=== PATIENT | female | born 1990 | race Asian ===

== ENCOUNTER 2017-01-27 07:58 | Inpatient (IN) | payer OTHER ==
[~2017-01-27] VITALS: Ht 157.5 cm; Wt 62.7 kg
[2017-01-27] MEDS ORDERED: LACTATED RINGER'S 1,000 ML IV SCH ×3 (09:30→15:13)
[2017-01-27 09:41] VITALS: BP 133/79; PULSE 86
[2017-01-27 09:42] VITALS: BMI 25.3
[2017-01-27] MEDS ORDERED: PRENAT PO (09:46)
--- NOTE | 2017-01-27 09:48 | RADRPT ---
PROCEDURE: OB ultrasound for biophysical profile CLINICAL INDICATION: Gestational diabetes TECHNIQUE: Multiple sonographic images of the pelvis were obtained. Transabdominal views of the g ravid uterus are available for review. The images were reviewed on a PACS workstation. COMPARISON: None FINDINGS: breathing movement = 2/2 tone = 2/2 motion = 2/2 NAINA = 2/2 NAINA = 11.8 cm Single live intrauterine with cardiac activity of 126 bpm. position is cephal ic. The placenta is anterior. IMPRESSION: 1. Single live intrauterine gestation. 2. Biophysical profile = 8/8. 3. NAINA = 11.8 cm. RPTAT: HH .Esha Amador MD, MD Date Time Electronically viewed and signed by .Esha Amador MD, on 01/27/2017 09:48 .G/
--- NOTE | 2017-01-27 09:59 | RADRPT ---
PROCEDURE: US OB. CLINICAL INDICATION: Gestational diabetes TECHNIQUE: Multiple sonographic images of the pelvis were obtained. Transabdominal imaging only w as performed. The images were reviewed on a PACS workstation. COMPARISON: No prior studies are available for comparison. FINDINGS: There is a single live intrauterine gestation. Cardiac activity is present with 146 beats per minut e. position is cephalic. Measurements were made in order to determine age. The results are as follows: BPD = 8.74 cm HC = 31.50 cm AC = 32.20 cm FL = 6.92 cm. Estimated gestational age of approximately 35 weeks 4 days. The estimated date of delivery is 02/27/2017. The EFW = 2767 g, 5.7 %ile. The placenta is anterior. There is no evidence for an abruption or placenta previa. There are no adnexal masses. IMPRESSION: 1. Single live intrauterine gestation of approximately 35 weeks 4 days, by ultrasound criteria. 2. The estimated date of delivery is 02/27/2017. 3. The estimated weight is 2767 g, 5.7 %ile. RPTAT: HH .Esha Amador MD, Date Time Electronically viewed and signed by .Esha Amador MD, on 01/27/2017 09:58 .G/
[2017-01-27 15:27] LABS: ABNORMAL IP MESSAGE 1; BASOPHILS % 0.2 % (0.0-2.0); EOSINOPHILS # 0.1 10^3/ul (0.0-0.5); EOSINOPHILS % 0.6 % (0.0-7.0); LYMPHOCYTES # 1.6 10^3/ul (0.8-2.9); LYMPHOCYTES % 15.1 % (15.0-51.0); MEAN CORPUSCULAR HEMOGLOBIN 28.8 pg (29.0-33.0); MEAN CORPUSCULAR HGB CONC 32.3 g/dl (32.0-37.0); MEAN CORPUSCULAR VOLUME 89.3 fl (82.0-101.0); MONOCYTE # 0.9 10^3/ul (0.3-0.9); MONOCYTES % 8.6 % (0.0-11.0); NEUTROPHILS % 73.2 % (39.0-77.0); PLATELET COUNT 131 10^3/UL (140-415); RED BLOOD COUNT 3.47 10^6/ul (4.20-5.40); RED CELL DISTRIBUTION WIDTH 15.3 % (11.5-14.5); WHITE BLOOD COUNT 10.3 10^3/ul (4.8-10.8)
[2017-01-27] MEDS ORDERED: BUTORPHANOL 2 MG INJ IV PRN (15:30)
[2017-01-27] MEDS ORDERED: METHYLERGONOVINE 0.2 MG INJ IM PRN (15:30)
[2017-01-27] MEDS ORDERED: MISOPROSTOL 200 MCG TAB PR PRN (15:30)
[2017-01-27] MEDS ORDERED: OXYTOCIN 30 UNITS/LR 500 ML IV PRN (15:30)
[2017-01-27] MEDS ORDERED: LIDOCAINE 1% (MPF) 30 ML INJ INJ PRN (15:30)
[2017-01-27] MEDS ORDERED: CARBOPROST 250 MCG INJ IM PRN (15:30)
[2017-01-27] MEDS ORDERED: IBUPROFEN 600 MG TAB PO PRN (15:30)
[2017-01-27] MEDS ORDERED: OXYTOCIN 30 UNITS/LR 500 ML IV SCH ×3 (15:30)
[2017-01-27 15:34] LABS: POSITIVE DIFF @See below
[2017-01-27 15:44] LABS: INR 0.85; PROTIME 11.6 Sec (12.2-14.2); PT RATIO 0.9
[2017-01-27 15:45] LABS: PARTIAL THROMBOPLASTIN TIME 27.6 Sec (25.0-35.0)
[2017-01-27 16:06] VITALS: Ht 157.5 cm; Wt 62.7 kg
[2017-01-27 16:13] VITALS: BP 123/74; PULSE 76; RESP 18
[2017-01-27] MEDS ORDERED: LACTATED RINGER'S 1,000 ML IV PRN (19:00)
[2017-01-27] MEDS ORDERED: FENTAnyl 2MCG/ML-ROPIV 0.2% 100 ML ONE (22:19)
[2017-01-27] MEDS ORDERED: FENTAnyl 2MCG/ML-ROPIV 0.2% 100 ML BAG EPI SCH (22:30)
[2017-01-27] MEDS ORDERED: NALOXONE (0.4 MG/ML) INJ IV PRN (22:30)
[2017-01-27] MEDS ORDERED: EPHEDrine SULFATE 50 MG/5 ML SYG IV PRN (22:30)
[2017-01-27] MEDS ORDERED: ONDANSETRON 4 MG INJ IV PRN (22:30)
[2017-01-27] MEDS ORDERED: DIPHENHYDRAMINE 50 MG INJ IV PRN (22:30)
[2017-01-28] MEDS: DEXTROSE 5%-LR 1,000 ML IV SCH ×2 (01:32→01:33)
--- NOTE | 2017-01-28 10:00 | HP ---
Date/Time of Note Date/Time of Note DATE: 01/28/17 TIME: 09:59 OB - History Hx of Present Free Text/Dictation 39+ : 1 Para: 0 Care: Good Care Ultrasounds: Normal mid trimester US Obstetrical Complications: None Medical Complications: None Past Family/Social History * Past Medical, Surgical, Family and Obstetric Histories reviewed from chart. OB Admission Exam Vital Signs Vital Signs Vital Signs Date Time Temp Pulse Resp B/P Pulse Ox O2 Delivery O2 Flow Rate FiO2 01/27/17 16:13 98.6 76 18 123/74 99 Room Air Last 72 hourBlood Glucose Bedside Glucose - 72 Hours Test 01/27/17 09:23 01/27/17 18:54 01/28/17 01:24 01/28/17 05:36 Bedside Glucose 76mg/dL (70-220) 106mg/dL (70-220) 68mg/dL (70-220) L 89mg/dL (70-220) Last 72 hours Lab Results CBC & BMP 01/27/17 08:35 OB Assessment/Plan Reason for admission: observation Plan: Expectant Management NANCY GOLD M.D. Jan 28, 2017 10:00
--- NOTE | 2017-01-28 10:01 | LDN ---
Date/Time of Note Date/Time of Note DATE: 01/28/17 TIME: 10:00 Delivery Summary Weeks of Gestation 39+ Placenta Delivered: Spontaneously Meconium: none Perineal laceration: 2 Anesthesia type: Epidural Estimated blood loss: 200 Sponge & Needle done & correct: Yes All needle counts correct: Yes Any foreign bodies felt in the: No Problems: Delivery Information Sex Infant Sex: female Apgars 1 Minute: 9 5 Minute: 9 Suctioning Nose & mouth suctioned at sondra: Yes Delee suction performed: Yes Umbilical Cord Umbilical cord with: 3 Vessels Cord presentations: nuchal cord (x1) Cord Blood was obtained: Yes Mother & Baby Disposition Disposition Mom & Baby to Maternity; Good: Yes Baby to NICU: No NANCY GOLD M.D. Jan 28, 2017 10:01
[2017-01-28 11:00] VITALS: BP 138/77; PULSE 76; RESP 19
[2017-01-28 11:30] VITALS: BP 125/70; PULSE 73; RESP 19
[2017-01-28] MEDS: LACTATED RINGER'S 1,000 ML IV* SCH ×2 (11:32→14:30)
[2017-01-28] MEDS ORDERED: OXYTOCIN 30 UNITS/LR 500 ML IV PRN (12:00)
[2017-01-28] MEDS ORDERED: CARBOPROST 250 MCG INJ IM PRN (12:00)
[2017-01-28] MEDS ORDERED: MISOPROSTOL 200 MCG TAB PR PRN (12:00)
[2017-01-28] MEDS: WITCH HAZEL/GLYCERIN PAD PR PRN (12:00)
[2017-01-28] MEDS ORDERED: LANOLIN 7 GM TUBE TOP PRN (12:00)
[2017-01-28] MEDS ORDERED: ZOLPIDEM 5 MG TAB PO PRN (12:00)
[2017-01-28] MEDS: IBUPROFEN 600 MG TAB PO SCH ×3 (12:00→23:25)
[2017-01-28] MEDS: BENZOCAINE 20% 56 ML SPRAY TOP PRN (12:00)
[2017-01-28] MEDS ORDERED: METHYLERGONOVINE 0.2 MG INJ IM PRN (12:00)
[2017-01-28 15:55] VITALS: BP 120/76; PULSE 67; RESP 19
[2017-01-28 20:00] VITALS: BP 120/67; PULSE 77; RESP 20
[2017-01-28] MEDS: SENNA/DOCUSATE NA (8.6MG/50MG) TAB PO SCH (20:38)
[2017-01-29] MEDS: LACTATED RINGER'S 1,000 ML IV* SCH ×3 (03:32→19:32)
[2017-01-29 04:16] VITALS: PULSE 74; RESP 20
[2017-01-29] MEDS: IBUPROFEN 600 MG TAB PO SCH ×4 (05:17→23:47)
[2017-01-29 07:45] VITALS: BP 127/70; PULSE 71; RESP 18
[2017-01-29] MEDS: SENNA/DOCUSATE NA (8.6MG/50MG) TAB PO SCH ×2 (08:38→21:08)
[2017-01-29] MEDS: OXYCODONE/ASPIRIN (4.88/325) TAB PO PRN ×2 (08:38→19:49)
[2017-01-29 08:42] LABS: ABNORMAL IP MESSAGE 1; BASOPHILS % 0.1 % (0.0-2.0); EOSINOPHILS # 0.1 10^3/ul (0.0-0.5); EOSINOPHILS % 0.5 % (0.0-7.0); HEMATOCRIT 25.9 % (37.0-47.0); LYMPHOCYTES # 1.8 10^3/ul (0.8-2.9); LYMPHOCYTES % 12.6 % (15.0-51.0); MEAN CORPUSCULAR HEMOGLOBIN 27.6 pg (29.0-33.0); MEAN CORPUSCULAR HGB CONC 30.9 g/dl (32.0-37.0); MEAN CORPUSCULAR VOLUME 89.3 fl (82.0-101.0); MEAN PLATELET VOLUME 13.4 fl (7.4-10.4); MONOCYTE # 1.1 10^3/ul (0.3-0.9); MONOCYTES % 7.5 % (0.0-11.0); NEUTROPHILS % 77.9 % (39.0-77.0); PLATELET COUNT 111 10^3/UL (140-415); RED CELL DISTRIBUTION WIDTH 15.3 % (11.5-14.5); WHITE BLOOD COUNT 14.5 10^3/ul (4.8-10.8)
[2017-01-29 08:48] LABS: POSITIVE DIFF @See below
--- NOTE | 2017-01-29 11:37 | PN ---
Date/Time of Note Date/Time of Note DATE: 01/29/17 TIME: 11:36 OB Subjective Subjective Subjective doing well uterus contracted voiding well lochia normal OB Objective HEENT: WNL Heart: Rhythm Normal Lungs: Clear, Equal Abdomen: WNL Extremities: Normal Reflexes: Normal JENNIFER AMARO MD Jan 29, 2017 11:37
[2017-01-29 16:38] VITALS: BP 135/87; PULSE 70; RESP 18
[2017-01-29 19:50] VITALS: BP 138/79; PULSE 81; RESP 18
[2017-01-30] MEDS: LACTATED RINGER'S 1,000 ML IV* SCH (03:32)
[2017-01-30 04:15] VITALS: BP 108/70; PULSE 74; RESP 18
[2017-01-30] MEDS: IBUPROFEN 600 MG TAB PO SCH ×2 (05:38→11:50)
[2017-01-30 07:29] VITALS: BP 127/79; PULSE 75; RESP 18
[2017-01-30] MEDS: SENNA/DOCUSATE NA (8.6MG/50MG) TAB PO SCH (08:37)
[2017-01-30] MEDS ORDERED: DIPHTH/TET/ACEL PERTUSS (ADULT) 0.5 ML VIAL IM* ONE (09:00)
[2017-01-30 09:57] LABS: ABNORMAL IP MESSAGE 1; BASOPHILS % 0.2 % (0.0-2.0); EOSINOPHILS # 0.1 10^3/ul (0.0-0.5); HEMATOCRIT 25.3 % (37.0-47.0); HEMOGLOBIN 8.1 g/dl (12.0-16.0); LYMPHOCYTES # 1.6 10^3/ul (0.8-2.9); LYMPHOCYTES % 13.7 % (15.0-51.0); MEAN CORPUSCULAR HEMOGLOBIN 28.8 pg (29.0-33.0); MEAN PLATELET VOLUME 14.2 fl (7.4-10.4); MONOCYTE # 0.9 10^3/ul (0.3-0.9); MONOCYTES % 7.6 % (0.0-11.0); NEUTROPHILS % 75.2 % (39.0-77.0); PLATELET COUNT 112 10^3/UL (140-415); RED BLOOD COUNT 2.81 10^6/ul (4.20-5.40); WHITE BLOOD COUNT 11.9 10^3/ul (4.8-10.8)
[2017-01-30 10:01] LABS: POSITIVE DIFF @See below
[2017-01-30] MEDS: BENZOCAINE 20% 56 ML SPRAY TOP PRN (12:30)
[2017-01-30] MEDS: WITCH HAZEL/GLYCERIN PAD PR PRN (12:30)
--- NOTE | 2017-01-30 13:07 | PD.PPDC ---
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
--- NOTE | 2017-01-30 13:09 | DS ---
Date/Time of Note Date/Time of Note DATE: 01/30/17 TIME: 13:08 Obstetrical Discharge Record Final Diagnosis Final Diagnosis: Term delivered Vaginal Delivery Obstetrical Delivery: Spontaneous, Laceration, Repaired Condition on Discharge Physical Assessment Voiding: Yes Bowel Movement: Yes Breast: Soft, non-tender, Filling Fundus: Firm Calf Tenderness: No Patient Condition: Good JENNIFER AMARO MD Jan 30, 2017 13:09
== END 2017-01-30 14:34 | disposition home or self-care (01) | DRG 775 ==
LOC: OBT 07:58 → L-D 08:03 → OBT 14:50 → PP1 01-28 11:20
PROVIDERS: ADMIT Obstetrics & Gynecology; ATTEND Obstetrics & Gynecology
PROC: 10E0XZZ Delivery of Products of Conception, External Approach (ICD-10-PCS; principal; 2017-01-28)
PROC: 0KQM0ZZ Repair Perineum Muscle, Open Approach (ICD-10-PCS; 2017-01-28)
PROC: 3E033VJ Introduction of Other Hormone into Peripheral Vein, Percutaneous Approach (ICD-10-PCS; 2017-01-28)
DX: O69.81X0 Labor and delivery complicated by cord around neck, without compression, not applicable or unspecified (principal); O24.429 Gestational diabetes mellitus in childbirth, unspecified control; O70.1 Second degree perineal laceration during delivery; Z3A.39 39 weeks gestation of pregnancy; Z37.0 Single live birth
CPT/HCPCS: 62319; 76816; 76818; 82962; 85025; 85610; 85730; 86592; 86900; 86901; 87340; 90715; 99464; G0463; J0595; J2590; J3010; J7120; J7121